=== PATIENT | female | born 1940 | race African-American/Black ===

== ENCOUNTER 2016-09-26 10:43 | Emergency (ER) | payer MEDICARE, OTHER ==
[~2016-09-26] VITALS: Ht 180.3 cm; Wt 86.0 kg
[~2016-09-26 10:43] MED LIST: ALEN70TA14 PO; DULO30CA2 PO; GABA-529 PO; LORA10TA7 PO; LORA5SOL46 PO; NAPR220C15 PO; TRAM50TA4 PO
[2016-09-26] MEDS ORDERED: FOLI1 PO (11:01)
[2016-09-26] MEDS ORDERED: ADV250 IH (11:01)
[2016-09-26] MEDS ORDERED: IBUP-1547 PO (11:01)
[2016-09-26] MEDS ORDERED: TIOT185 IH (11:01)
[2016-09-26] MEDS ORDERED: KETOROLAC TROMETHAMINE 60 MG/2 ML VIAL IM ONE (12:00)
[2016-09-26] MEDS ORDERED: HYDROCODONE/ACETAMINOPHEN 10-325 MG TABLET PO ONE (13:45)
[2016-09-26 14:56] VITALS: BP 130/82
== END 2016-09-26 14:57 | disposition home or self-care (01) ==
LOC: EMS 10:45
DX: M16.11 Unilateral primary osteoarthritis, right hip (principal); G89.29 Other chronic pain; J45.909 Unspecified asthma, uncomplicated; J44.9 Chronic obstructive pulmonary disease, unspecified; Z96.641 Presence of right artificial hip joint
CPT/HCPCS: 73521; 96372; 99284; J1885

== ENCOUNTER 2023-07-18 14:42 | Inpatient (IN) | payer MEDICARE, MEDICAID ==
[~2023-07-18] VITALS: Ht 180.3 cm; Wt 76.7 kg
[~2023-07-18 14:42] MED LIST changes: -ALEN70TA14 PO; +DULO-114 PO; -DULO30CA2 PO; +FLUT1DIS6 IH; +FOLI-130 PO; -GABA-529 PO; +IBUP-1493 PO; -LORA10TA7 PO; -LORA5SOL46 PO; -NAPR220C15 PO; +TIOT185 IH; -TRAM50TA4 PO
[2023-07-18 15:21] VITALS: PULSE 103; RESP 20; O2SAT 91
[2023-07-18] MEDS: ALBUTEROL SULFATE 2.5 MG/0.5 ML NEB SOLUTION NEB ONE (15:21)
[2023-07-18] MEDS: IPRATROPIUM BROMIDE 0.5 MG/2.5 ML NEB SOLUTION NEB ONE (15:21)
[2023-07-18 15:30] LABS: BASOPHILS % (AUTO) 0.4 % (0.0-2.0); EOSINOPHILS % (AUTO) 0.2 % (1.0-6.0); HEMATOCRIT 43.7 % (36-46); HEMOGLOBIN 14.4 g/dL (12.0-16.0); LYMPHOCYTES # (AUTO) 1.1 K/uL (1.0-4.8); LYMPHOCYTES % (AUTO) 14.8 % (22.0-44.0); MEAN CORPUSCULAR VOLUME 88 fL (80-100); MONOCYTES # (AUTO) 0.8 K/uL (0.1-1.0); MONOCYTES % (AUTO) 10.9 % (2.0-9.0); NEUTROPHILS # (AUTO) 5.6 K/uL (1.8-7.7); NEUTROPHILS % (AUTO) 73.7 % (40.0-70.0); PLATELET COUNT (AUTO) 219 K/uL (150-450); RED BLOOD CELL COUNT(AUTO) 4.96 MIL/uL (4.00-5.20); RED CELL DISTRIBUTION WIDTH 15.1 % (11.5-14.5); WHITE BLOOD COUNT (AUTO) 7.6 K/uL (4.5-11.0)
[2023-07-18 15:36] VITALS: PULSE 103; RESP 21; O2SAT 97
[2023-07-18 15:41] LABS: CREATININE 1.11 mg/dL (0.60-1.30); POTASSIUM 3.8 mmol/L (3.5-5.1)
[2023-07-18 15:49] LABS: TROPONIN I-HIGH SENSITIVITY 17 ng/L (<51)
[2023-07-18 15:52] LABS: ALBUMIN 3.9 g/dL (3.4-5.0); BILIRUBIN,TOTAL 0.6 mg/dL (0.1-1.0); TOTAL PROTEIN, SERUM 8.5 g/dL (6.4-8.2)
[2023-07-18 16:27] LABS: INFLUENZA A-RTPCR,COMBO POSITIVE (NEGATIVE); INFLUENZA B-RTPCR,COMBO NEGATIVE (NEGATIVE); RESPIRATORY SYNCYTIAL VRS-PCR NEGATIVE (NEGATIVE); SARS COVID19 RTPCR, COMBO NEGATIVE (NEGATIVE)
[2023-07-18] MEDS ORDERED: ACETAMINOPHEN 325 MG TABLET PO PRN (16:30)
[2023-07-18] MEDS ORDERED: BISACODYL 10 MG RECTAL RECTAL SUPPOSITORY PR PRN (16:30)
[2023-07-18] MEDS ORDERED: IPRATROPIUM BROMIDE 0.5 MG/2.5 ML NEB SOLUTION NEB PRN (16:30)
[2023-07-18] MEDS ORDERED: MAGNESIUM HYDROXIDE SUSPENSION 30 ML UDCUP PO PRN (16:30)
[2023-07-18] MEDS ORDERED: ALBUTEROL SULFATE 2.5 MG/0.5 ML NEB SOLUTION NEB PRN (16:30)
[2023-07-18] MEDS ORDERED: ONDANSETRON HCL 4 MG/2 ML VIAL IVP PRN (16:30)
[2023-07-18] MEDS ORDERED: OxyCODONE HCL/ACETAMINOPHEN 5-325 MG TABLET PO PRN (16:30)
[2023-07-18] MEDS ORDERED: MORPHINE SULFATE 2 MG/ML SYRINGE IVP PRN (16:30)
[2023-07-18] MEDS ORDERED: ZOLPIDEM TARTRATE 5 MG TABLET PO PRN (16:30)
[2023-07-18] MEDS: MethylPREDNISolone SOD SUCC 125 MG/2 ML VIAL IVP ONE (16:59)
[2023-07-18] MEDS: MethylPREDNISolone SOD SUCC 125 MG/2 ML VIAL IVP SCH (17:59)
[2023-07-18] MEDS: ALBUTEROL SULFATE 2.5 MG/0.5 ML NEB SOLUTION NEB SCH (19:00)
[2023-07-18] MEDS: IPRATROPIUM BROMIDE 0.5 MG/2.5 ML NEB SOLUTION NEB SCH (19:00)
[2023-07-18 21:08] VITALS: BP 136/69; PULSE 94; RESP 20; TEMP 98.2
[2023-07-18] MEDS: DOCUSATE SODIUM 100 MG CAPSULE PO SCH (22:10)
[2023-07-18 23:15] VITALS: PULSE 87; RESP 20; O2SAT 94
[2023-07-18 23:30] VITALS: PULSE 89; RESP 20; O2SAT 98
[2023-07-19] VITALS (14 sets, daily range): BP systolic 116–144; BP diastolic 57–91; PULSE 74–111; RESP 18–20; TEMP 97.7–98.7; O2SAT 95–97
[2023-07-19] MEDS: HEPARIN SODIUM,PORCINE 5,000 UNITS/ML VIAL SQ SCH (00:40)
[2023-07-19] MEDS ORDERED: INFLUENZA VIRUS VACCINE QVS 2023-24 (6MO+)/PF 60 MCG/0.5 ML SYRINGE IM. ONE (05:15)
[2023-07-19] MEDS: TIOTROPIUM BROMIDE 18 MCG/INH HANDIHALER [5] IH SCH (09:07)
[2023-07-19] MEDS: PANTOPRAZOLE SODIUM 40 MG DR TABLET PO SCH (09:08)
[2023-07-19] MEDS: FOLIC ACID 1 MG TABLET PO SCH (09:08)
[2023-07-19] MEDS: DULoxetine HCL 30 MG CAPSULE PO SCH (09:08)
[2023-07-19] MEDS: NICOTINE 14 MG/24 HOUR PATCH TD SCH (09:10)
[2023-07-19] MEDS ORDERED: OSELTAMIVIR PHOSPHATE 75 MG CAPSULE PO SCH ×2 (13:45→21:00)
[2023-07-19] MEDS: OSELTAMIVIR PHOSPHATE 75 MG CAPSULE PO ONE (15:18)
[2023-07-19] MEDS: MethylPREDNISolone SOD SUCC 125 MG/2 ML VIAL IVP SCH (17:14)
[2023-07-20] VITALS (7 sets, daily range): BP systolic 115–129; BP diastolic 70–79; PULSE 74–90; RESP 18–20; TEMP 98–98.1; O2SAT 97–99
[2023-07-20] MEDS ORDERED: PRED-554 PO (13:12)
[2023-07-20] MEDS ORDERED: OSEL75 PO (13:12)
[2023-07-20] MEDS: OSELTAMIVIR PHOSPHATE 30 MG CAPSULE PO SCH (14:40)
[2023-07-21] MEDS ORDERED: PredniSONE 20 MG TABLET PO SCH (09:00)
== END 2023-07-20 15:00 | disposition home health service (06) | DRG 140 ==
LOC: EMS 14:44 → 5N 19:15
PROVIDERS: ADMIT Hospitalist; ATTEND Hospitalist
DX: J44.1 Chronic obstructive pulmonary disease with (acute) exacerbation (principal); J96.01 Acute respiratory failure with hypoxia; J45.901 Unspecified asthma with (acute) exacerbation; Z96.649 Presence of unspecified artificial hip joint; J10.1 Influenza due to other identified influenza virus with other respiratory manifestations; F32.A Depression, unspecified; Z71.6 Tobacco abuse counseling; Z82.49 Family history of ischemic heart disease and other diseases of the circulatory system; Z79.899 Other long term (current) drug therapy; Z72.0 Tobacco use
CPT/HCPCS: 0241U; 71045; 80053; 83880; 84484; 85025; 87040; 93005; 94640; 99291; J1644; J2930; Q9967; 36415-L1; 36415-TC; J7613